=== PATIENT | female | born 1950 | race Caucasian/White ===

== ENCOUNTER 2017-02-20 19:50 | Emergency (ER) | payer MEDICARE, OTHER ==
[2017-02-20 20:46] VITALS: BP 116/80
--- NOTE | 2017-02-20 21:08 | UC ---
Upper Extremity HPI - HPI Summary HPI Summary: 66 F with right shoulder pain and right upper arm pain and left wrist pain and swelling after a fall 1 week ago. Pt with hx prior right shoulder dislocation, full thickness rotator cuff tear, osteoarthritis, calcium deposits in the tendon , enthesopathy. Pt states she was sore after the fall but able to continue her exercises and then this afternoon pt went to reach for something on a shelf and she could not reach and felt intense pain. - History of Current Complaint Chief Complaint: UCUpperExtremity Stated Complaint: RT SHOULDER PAIN, LT WRIST PAIN, FALL Time Seen by Provider: 02/20/17 20:17 Hx Obtained From: Patient Onset/Duration: Gradual Onset, Lasting Days, Still Present Severity Initially: Moderate Severity Currently: Moderate Pain Intensity: 9 Pain Scale Used: 0-10 Numeric Location Of Pain: Is Discrete @ - right shoulder Character: Sharp Aggravating Factor(s): Movement Alleviating Factor(s): Nothing Associated Signs And Symptoms: Positive: Negative Related History: Similar Episode/Dx As - rotator cuff tear - Risk Factors Non-Orthopedic Risk Factor: Negative DVT Risk Factors: Recent Trauma Septic Arthritis Risk Factor: Negative - Allergies/Home Medications Allergies/Adverse Reactions: Allergies Allergy/AdvReac Type Severity Reaction Status Date / Time Solifenacin [From Vesicare] Allergy Severe throat Verified 02/20/17 20:08 closes Sulfamethoxazole AdvReac Severe Vomiting Verified 02/20/17 20:08 Home Medications: Home Medications Cholecalciferol [D 1000] 2,000 unit PO DAILY 02/20/17 [History Confirmed ] Dicyclomine CAP* [Bentyl CAP*] 20 mg PO QID 02/20/17 [History Confirmed 02/20/17 ] Dulaglutide [Trulicity] 0.75 mg SC WEEKLY 02/20/17 [History Confirmed 02/20/17] QUEtiapine TAB* [Seroquel TAB*] 200 mg PO BEDTIME 02/20/17 [History Confirmed ] PMH/Surg Hx/FS Hx/Imm Hx Endocrine History Of: Reports: Diabetes Cardiovascular History Of: Reports: Hypertension - Surgical History Surgical History: Yes Surgery Procedure, Year, and Place: Cholecysectomy. Rotator Cuff Repair. Right Foot Tumor Removed. Ovarian Cyst Removed - Family History Known Family History: Positive: Diabetes - Social History Alcohol Use: None Substance Use Type: None Smoking Status (MU): Former Smoker When Did the Patient Quit Smoking/Using Tobacco: OVER 20 YEARS AGO Review of Systems Constitutional: Negative Skin: Negative Eyes: Negative ENT: Negative Respiratory: Negative Cardiovascular: Palpitations Gastrointestinal: Negative Genitourinary: Negative Motor: Negative Neurovascular: Negative Musculoskeletal: Arthralgia, Myalgia Neurological: Negative Psychological: Negative All Other Systems Reviewed And Are Negative: Yes Physical Exam Triage Information Reviewed: Yes Appearance: Ill-Appearing, Pain Distress, Obese Vital Signs: Initial Vital Signs Temp 98.2 F 02/20/17 20:16 Pulse 74 02/20/17 20:16 Resp 20 02/20/17 20:16 BP 116/80 02/20/17 20:16 Pulse Ox 100 02/20/17 20:16 Vital Signs Reviewed: Yes Eyes: Positive: Conjunctiva Clear ENT: Positive: Normal ENT inspection, Hearing grossly normal. Negative: Muffled /hoarse voice Neck: Positive: Supple, Nontender Respiratory: Positive: Lungs clear, Normal breath sounds, No respiratory distress Cardiovascular: Positive: RRR, No Murmur, Pulses Normal, Brisk Capillary Refill Musculoskeletal: Positive: ROM Limited @ - right shoulder, unable to raise right arm above her head, decreased abduction; left wrist with swelling ulnar aspect, full ROM, no bony tenderness Neurological: Positive: Alert, Muscle Tone Normal Psychological Exam: Normal Skin: Positive: Other - large ecchymosis on right lower abd after DM injection Upper Extremity Course/Dx - Course Course Of Treatment: right shoulder -no acute findings. right humerus - no acute findings. left wrist - no acute findings. EKG SR, nl AV increased IVCT, LAD, LVH. no acute changes, no prior to compare. - Differential Dx/Diagnosis Differential Diagnosis/HQI/PQRI: Fracture (Closed), Strain, Sprain, Other - rotator cuff tear, tendonitis Provider Diagnoses: 1) right shoulder strain with rotator cuff tear. 2) left wrist sprain. 3)palpitations Discharge - Discharge Plan Condition: Stable Disposition: HOME Patient Education Materials: Palpitations (ED), Rotator Cuff Injury (ED), Wrist Sprain (ED) Referrals: Dick Ramos MD [Primary Care Provider] - Karolina Vasquez MD [Medical Doctor] - 3 Days
--- NOTE | 2017-02-20 21:39 | RAD ---
HISTORY: Right shoulder pain COMPARISONS: None VIEWS: 4, Frontal internal rotation, external rotation, and outlet views of the right shoulder FINDINGS: BONE DENSITY: Normal. BONES: There is no displaced fracture. JOINTS: There is no arthropathy. ALIGNMENT: There is no dislocation. SOFT TISSUES: Unremarkable. OTHER FINDINGS: None. IMPRESSION: NO ACUTE OSSEOUS INJURY. IF SYMPTOMS PERSIST, RECOMMEND REPEAT IMAGING.
--- NOTE | 2017-02-20 21:40 | RAD ---
HISTORY: Right shoulder pain, trauma COMPARISONS: None VIEWS: 3, Frontal internal rotation and external rotation views of the right shoulder, with lateral views of the elbow FINDINGS: BONE DENSITY: Normal. BONES: There is no displaced fracture. JOINTS: There is no arthropathy. ALIGNMENT: There is no dislocation. SOFT TISSUES: Unremarkable. OTHER FINDINGS: None. IMPRESSION: NO ACUTE OSSEOUS INJURY. IF SYMPTOMS PERSIST, RECOMMEND REPEAT IMAGING.
--- NOTE | 2017-02-20 21:41 | RAD ---
HISTORY: Left wrist pain and swelling, subacute trauma COMPARISONS: None VIEWS: 3, Frontal, lateral, and oblique views of the left wrist FINDINGS: BONE DENSITY: Normal. BONES: There is no displaced fracture. JOINTS: There is osteoporosis of the first CMC and radiocarpal articulation ALIGNMENT: There is no dislocation. SOFT TISSUES: Unremarkable. OTHER FINDINGS: None. IMPRESSION: OSTEOARTHRITIS. NO ACUTE OSSEOUS INJURY. IF SYMPTOMS PERSIST, RECOMMEND REPEAT IMAGING.
== END 2017-02-20 22:13 | disposition home or self-care (01) ==
LOC: UCCORT 19:50
DX: S46.911A Strain of unspecified muscle, fascia and tendon at shoulder and upper arm level, right arm, initial encounter (principal); S46.011A Strain of muscle(s) and tendon(s) of the rotator cuff of right shoulder, initial encounter; S63.502A Unspecified sprain of left wrist, initial encounter; W19.XXXA Unspecified fall, initial encounter; Y93.9 Activity, unspecified; Y92.9 Unspecified place or not applicable; E11.9 Type 2 diabetes mellitus without complications; Z79.4 Long term (current) use of insulin; I10 Essential (primary) hypertension; Z90.49 Acquired absence of other specified parts of digestive tract; E66.9 Obesity, unspecified; Z88.2 Allergy status to sulfonamides; Z87.891 Personal history of nicotine dependence; M79.81 Nontraumatic hematoma of soft tissue
CPT/HCPCS: 93005; 99203; G0463

== ENCOUNTER 2019-09-12 14:31 | Emergency (ER) | payer MEDICARE, OTHER ==
--- OUTSIDE RECORDS SUMMARY | 2019-09-12 14:37 | XMS REPORT | Continuity of Care Document ---
:1950 External Reference #:[id number] Author Name Radha Hre, [facility] Address [address] [place] [id number] Care Team Providers Name Role Phone Dick Ramos MD - Family Care Team Information [employer] [phone] Medicine Problems Active Problems Provider Date Enthesopathy Onset: 11/16/2003 Calcium deposits in tendon Onset: 11/16/2003 Disorder of bursa of shoulder region Onset: 11/16/2003 Closed traumatic dislocation of joint Dre Capellan MD, FACS Onset: of shoulder region History of polyp of colon Billy Tom MD Onset: 08/07/2018 Irritable bowel syndrome with diarrhea Milo Ferreira MD Onset: 04/02/2018 Chronic nonalcoholic liver disease Milo Ferreira MD Onset: 02/19/2018 Digestive symptom Milo Ferreira MD Onset: 02/19/2018 Contusion of shoulder region Dre Capellan MD, FACS Onset: 10/20/2014 Localized, primary osteoarthritis Dre Capellan MD, FACS Onset: 2013 Full thickness rotator cuff tear Dre Capellan MD, FACS Onset: 2013 Localized, primary osteoarthritis of Dre Capellan MD, FACS Onset: 08/30 the shoulder region Social History Type Date Description Comments Sex Unknown Tobacco Use Start: Unknown End: Quit Unknown Smoking Status Reviewed: 06/23/19 Quit Smokeless Tobacco Never Used Smokeless Tobacco ETOH Use Denies alcohol use Tobacco Use Start: Unknown End: Patient is a former smoker Unknown Recreational Drug Use Denies Drug Use Allergies, Adverse Reactions, Alerts Active Allergies Reaction Severity Comments Date Sulfamethoxazole 07/08/2014 Vesicare 07/08/2014 NSAIDs kidney dysfunction 01/06/2019 Medications Active Medications SIG Qnty Indications Ordering Provider Date Unknown eye drops 4x Paulette Washingtonishmael, 02/19/2019 daily after MD cataract surgery Desmopressin Acetate Take One Tablet Unknown 0.2mg By Mouth AT Tablets Bedtime Chlorthalidone Take One Tablet Unknown 25mg Tablets By Mouth Every Day Onetouch Verio Flex Use To Test Blood Unknown Bloodglucose Monitoring Sugar System w/Device Kit Divalproex Sodium ER Take Three Unknown 500mg Tablets By Mouth Tablets ER 24HR AT Bedtime Maximum Daily Dose 1500MG Loperamide HCL take one capsule Unknown 2mg Capsules by mouth to start, then may take 1 capsule after each bout of diarrhea up to 8 caps a day Bupropion HCL ER (XL) Take One Tablet Unknown 150mg By Mouth Every Tablets ER 24HR Morning Latanoprost Instill One Drop Unknown 0.005% Solution In Each Eye AT Bedtime Onetouch Ultra Blue Use Two Times A Unknown Strips Day And as Needed Muscle Relief as needed Unknown 0.075% Cream Biofreeze A/D prn Unknown 4% Gel Tylenol Extra Strength A/D prn Unknown 500mg Tablets Quetiapine Fumarate 1 tabs at night Unknown 200mg and if needed 1 Tablets more Lisinopril once daily Unknown 10mg Tablets Lovastatin once daily Unknown 40mg Tablets Vitamin D 1 po daily Unknown 2000Unit Capsules Metoprolol Succinate ER 1 po daily Unknown 25mg Tablets ER 24HR Metformin HCL twice daily Unknown 500mg Tablets Medications Administered in Office Medication SIG Qnty Indications Ordering Provider Date Betamethasone Acetate & Sodium Radha Her, 01/22/2019 Phosphate 3 MG Of Each RPAC Injection Betamethasone Acetate & Sodium Radha Her, 01/22/2019 Phosphate 3 MG Of Each RPAC Injection Depomedrol 40mg/1cc Radha Her, 10/20/2018 (methylprednisolone acetate) RPAC Injection Depo-Medrol 20mg Radha Her, 10/20/2018 Injection RPAC Methylprednisolone acetate Radha Her, 05/01/2017 (Depomedrol) 80mg injection RPAC Injection Methylprednisolone acetate Radha Her, 09/20/2015 (Depomedrol) 80mg injection RPAC Injection Immunizations Description No Information Available Vital Signs Date Vital Result Comment 08/19/2019 10:19am BP Systolic 94 mmHg BP Diastolic 56 mmHg Body Temperature 96.9 F Heart Rate 74 /min Height 63.5 inches 5'3.50" Weight 229.00 lb BMI (Body Mass Index) 39.9 kg/m2 BSA (Body Surface Area) 2.06 m2 [place] body weight in kilograms 53 kg O2 % BldC Oximetry 96 % 06/23/2019 1:13pm BP Systolic 110 mmHg BP Diastolic 59 mmHg Body Temperature 98.7 F Heart Rate 68 /min Height 63.5 inches 5'3.50" Weight 234.00 lb BMI (Body Mass Index) 40.8 kg/m2 BSA (Body Surface Area) 2.08 m2 [place] body weight in kilograms 53 kg O2 % BldC Oximetry 95 % Results Test Date Facility Test Result H/L Range Note Xray 08/19/2019 [facility] - Orthopedic RMP, Hand, RT, < pending> [address] Complete (min [address] [place] [address] view) [phone] Procedures Date Code Description Status 08/19/2019 85215 Radiology, Hand: Minimum Three Views Completed 06/23/2019 72740 Debridement Nails Any Method 6 Or More Completed 04/14/2019 20986 Debridement Nails Any Method 6 Or More Completed 04/14/2019 45867 Pare Hyperkeratotic Lesion, 2-4 Completed 09/16/2014 [id number] Colonoscopy Completed 07/14/2009 [id number] Colonoscopy Completed 01/07/2007 [id number] Colonoscopy Completed 09/29/2004 [id number] Colonoscopy Completed Medical Devices Description No Information Available Encounters Type Date Location Provider Dx Diagnosis Office Visit 08/19/2019 Orthopaedic Office Radha Her M65.4 Radial styloid 10:15a S., RPAC tenosynovitis [de [facility]] M79.641 Pain in right hand M18.11 Unil primary osteoarth of first carpometacarp joint, r hand Office Visit 02/19/2019 Orthopaedic Her, M65.4 Radial styloid 1:45p Office Radha Weldon, tenosynovitis [de [facility]] M65.4 Radial styloid tenosynovitis [de [facility]] M18.12 Unil primary osteoarth of first carpometacarp joint, l hand M18.12 Unil primary osteoarth of first carpometacarp joint, l hand Assessments Date Code Description Provider 08/19/2019 M65.4 Radial styloid tenosynovitis [de Radha Her, [facility]] 08/19/2019 M79.641 Pain in right hand Radha Her, [facility] 08/19/2019 M18.11 Unilateral primary osteoarthritis of Radha Her, [facility] first carpometacarpal joint, right hand 06/23/2019 E11.9 Type 2 diabetes mellitus without Dre Betancourt, MARGARITO complications 06/23/2019 Q66.52 Congenital pes planus, left foot SerafinDre damon, MARGARITO 06/23/2019 Q66.51 Congenital pes planus, right foot Dre Betancourt, DPM 06/23/2019 M20.12 Hallux valgus (acquired), left foot Dre Betancourt, DPM 06/23/2019 M20.11 Hallux valgus (acquired), right foot Dre Betancourt, DPM 06/23/2019 M20.5x1 Other deformities of toe(s) (acquired), Dre Betancourt, DPM right foot 06/23/2019 M20.5x2 Other deformities of toe(s) (acquired), Dre Betancourt, DPM left foot 06/23/2019 M20.41 Other hammer toe(s) (acquired), right Dre Betancourt, DPM foot 06/23/2019 M20.42 Other hammer toe(s) (acquired), left foot Dre Betancourt, DPM 06/08/2019 E87.1 Hypo-osmolality and hyponatremia Brianna Leiva M.D. 06/08/2019 R53.1 Weakness Brianna Leiva M.D. 06/08/2019 E87.70 Fluid overload, unspecified Brianna Leiva M.D. 06/08/2019 N17.9 Acute kidney failure, unspecified Brianna Leiva M.D. 06/07/2019 E87.1 Hypo-osmolality and hyponatremia Brianna Leiva M.D. 06/07/2019 R53.1 Weakness Brianna Leiva M.D. 06/07/2019 E87.70 Fluid overload, unspecified Brianna Leiva M.D. 06/07/2019 N17.9 Acute kidney failure, unspecified Brianna Leiva M.D. 06/06/2019 E87.1 Hypo-osmolality and hyponatremia Brianna Leiva M.D. 06/06/2019 R53.1 Weakness Brianna Leiva M.D. 06/06/2019 E87.70 Fluid overload, Brianna Drake M.D. 06/06/2019 N17.9 Acute kidney failure, unspecified Brianna Leiva M.D. 06/05/2019 E87.1 Hypo-osmolality and hyponatremia Yury Rodríguez M.D. 06/05/2019 R53.1 Weakness Yury Rodríguez M.D. 06/05/2019 R42 Dizziness and giddiness Yury Rodríguez M.D. 06/05/2019 R06.02 Shortness of breath Yury Rodríguez M.D. 04/14/2019 E11.9 Type 2 diabetes mellitus without Dre Betancourt DPM complications 04/14/2019 E11.9 Type 2 diabetes mellitus without Dre Betancourt DPM complications 04/14/2019 L84 Corns and callosities Dre Betancourt DPM 04/14/2019 Q66.51 Congenital pes planus, right foot Dre Betancourt DPM 04/14/2019 Q66.52 Congenital pes planus, left foot Dre Betancourt DPM 04/14/2019 M20.12 Hallux valgus (acquired), left foot Dre Betancourt DPM 04/14/2019 M20.11 Hallux valgus (acquired), right foot Dre Betancourt DPM 04/14/2019 M20.5x2 Other deformities of toe(s) (acquired), Dre Betancourt DPM left foot 04/14/2019 M20.5x1 Other deformities of toe(s) (acquired), Dre Betancourt, DPM right foot 04/14/2019 M20.41 Other hammer toe(s) (acquired), right Dre Betancourt, [place] foot 04/14/2019 M20.42 Other hammer toe(s) (acquired), left foot Dre Betancourt DPM 02/19/2019 M65.4 Radial styloid tenosynovitis [Radha Esquivel, [facility]] 02/19/2019 M65.4 Radial styloid tenosynovitis [[facility]] 02/19/2019 M18.12 Unil primary osteoarth of first Radha Her S., RPAC carpometacarp joint, l hand 02/19/2019 M18.12 Unilateral primary osteoarthritis of Radha Her S., RPAC first carpometacarpal joint, left hand Plan of Treatment No Information Available Functional Status Description No Information Available Mental Status Description No Information Available Referrals Description No Information Available
[2019-09-12 14:42] VITALS: BP 108/60
--- NOTE | 2019-09-12 14:59 | UC ---
UC General HPI - History of Current Complaint Chief Complaint: LEWkin Stated Complaint: TAIL BONE PAIN Hx Obtained From: Patient Pain Intensity: 5 - Allergy/Home Medications Allergies/Adverse Reactions: Allergies Allergy/AdvReac Type Severity Reaction Status Date / Time Sulfa (Sulfonamide Allergy Vomiting Verified 09/12/19 14:55 Antibiotics) MS Sulfamethoxazole AdvReac Severe Vomiting Verified 09/12/19 14:55 [Sulfamethoxazole] Home Medications: Home Medications Acetaminophen [Acetaminophen Extra Strength] 500 mg PO QID 09/12/19 [History Confirmed 09/12/19] PMH/Surg Hx/FS Hx/Imm Hx Endocrine History: Diabetes, Dyslipidemia Cardiovascular History: Hypertension GI/ History: Gall Bladder Disease, Renal Disease, Other - IBS, benign uterine tumor Psychological History: Bipolar Disorder - Surgical History Surgical History: Yes Surgery Procedure, Year, and Place: Cholecysectomy. Rotator Cuff Repair. Right Foot Tumor Removed. Ovarian Cyst Removed. Hysterectomy - Family History Known Family History: Positive: Diabetes - Social History Occupation: Retired Lives: Alone Alcohol Use: None Substance Use Type: None Smoking Status (MU): Former Smoker When Did the Patient Quit Smoking/Using Tobacco: OVER 20 YEARS AGO Review of Systems All Other Systems Reviewed And Are Negative: Yes Constitutional: Negative: Fever, Chills Skin: Negative: Other - Unsure of skin lesions or skin breakdown ENT: Positive: Negative Respiratory: Positive: Negative Cardiovascular: Positive: Negative Gastrointestinal: Positive: Diarrhea. Negative: Abdominal Pain, Vomiting, Nausea Genitourinary: Positive: Other - Stress urinary incontinence. Negative: Dysuria , Hematuria, Frequency, Urgency Musculoskeletal: Positive: Negative Neurological: Negative: Weakness, Paresthesia, Numbness Is Patient Immunocompromised?: No Physical Exam - Summary Physical Exam Summary: GENERAL APPEARANCE: Well developed, well nourished, alert and cooperative, and appears to be in no acute distress. CARDIAC: Normal S1 and S2. No S3, S4 or murmurs. Rhythm is regular. There is no peripheral edema, cyanosis or pallor. Extremities are warm and well perfused. Capillary refill is less than 2 seconds. Peripheral pulses intact. LUNGS: Clear to auscultation without rales, rhonchi, wheezing or diminished breath sounds. ABDOMEN: Positive bowel sounds. Soft, nondistended, nontender. No guarding or rebound. No masses or hepatosplenomegally. MUSKULOSKELETAL: ROM intact to all extremities. No joint erythema or tenderness. Normal muscular development. Normal gait. BACK: Non-tender over the coccyx. There is soft tissue tenderness immediately inferior to the coccyx bone. No deformity, erythema, ecchymosis, edema, lesions , or ulceration noted. NEUROLOGICAL: Strength and sensation symmetric and intact to lower extremities. Reflexes 2+ bilaterally. SKIN: Skin normal color, texture and turgor for age. Triage Information Reviewed: Yes Vital Signs: Initial Vital Signs Temp 98.7 F 09/12/19 14:38 Pulse 61 09/12/19 14:38 Resp 18 09/12/19 14:38 BP 108/60 09/12/19 14:38 Pulse Ox 100 09/12/19 14:38 Vital Signs Reviewed: Yes Course/Dx - Course Course Of Treatment: 69-year-old female presents with 3 week history of tailbone pain. Patient reports she had a fall about a month before the onset of pain where she fell backwards flat onto her back but denies any back pain after the incident. She describes the pain as "extremely sore". Worsens with extended sitting or when changing positions from sitting to standing. Patient is very tangential with her medical history however reports she has IBS with frequent loose stools as well as stress incontinence for which she wears an adult incontinence brief. She is unsure of any skin breakdown or lesions. She has had 2 recent hospitalizations and states that she has been fairly immobile until recently. She also reports that she has had multiple precancerous polyps removed in the past and has routine colonoscopies every 5 years the most recent being 1 year ago when she had 2 polyps removed. Denies fever, chills, unintentional weight loss, abdominal pain, nausea, vomiting, rectal pain, pelvic pain, blood in stools, melena, dysuria, frequency, urgency, hematuria, vaginal discharge or abnormal bleeding. Afebrile. Vital signs stable. Patient was non-tender over the coccyx however did have soft tissue tenderness immediately inferior to the coccyx bone without deformity, erythema, ecchymosis, edema, lesions, or ulceration noted. Remainder of exam was unremarkable. I discussed with the patient that I could not determine the exact cause of her pain and that it may may be related to her recent immobility however I cannot also rule out other causes including a malignant tumor. Recommending conservative treatment for coccydynia including [id number] analgesic and use of a donut pillow to decrease pressure from the area. She is to follow-up with her primary care provider in 5-7 days for reevaluation of her symptoms. Anticipatory guidance and warning symptoms reviewed with the patient. Verbalizes understanding and agrees with plan of care. - Differential Dx - Multi-Symptom Differential Diagnoses: Other - Diagnoses Provider Diagnosis: Coccygalgia Discharge ED - Sign-Out/Discharge Documenting (check all that apply): Patient Departure All imaging exams completed and their final reports reviewed: No Studies - Discharge Plan Condition: Stable Disposition: HOME Patient Education Materials: Coccyx Injury (ED) Referrals: Massiel Chang NP [Primary Care Provider] - 5 Days Additional Instructions: I could find no indication for your tailbone pain at this time. Your skin was in good condition and you had no tenderness over the tailbone itself. It is possible that there is some soft tissue inflammation from your recent hospitalizations and immobility however I cannot fully rule out other causes including possible colorectal cancer especially considering your history of having multiple polyps. You may use acetaminophen (Tylenol) according directions as needed for pain. You may also want to try using a donut pillow or wedge pillow to help relieve pressure on the tailbone. These can be purchased at a pharmacy or [employer]. Follow-up with your primary care provider within 5-7 days for further evaluation. Seek immediate medical attention in the emergency room if you develop fever greater than 100.5 F, have severe abdominal pain, blood in your bowel movements or have dark black bowel movements, you develop weakness, numbness, or tingling in the extremities, are unable to ambulate, or have any worsening of symptoms. - Billing Disposition and Condition Condition: STABLE Disposition: Home
== END 2019-09-12 15:40 | disposition home or self-care (01) ==
LOC: UCCORT 14:31
DX: M53.3 Sacrococcygeal disorders, not elsewhere classified (principal); E11.9 Type 2 diabetes mellitus without complications; I10 Essential (primary) hypertension; F31.9 Bipolar disorder, unspecified; Z90.710 Acquired absence of both cervix and uterus; Z90.49 Acquired absence of other specified parts of digestive tract; Z88.2 Allergy status to sulfonamides; Z87.891 Personal history of nicotine dependence
CPT/HCPCS: 99211; G0463

== ENCOUNTER 2019-11-16 20:36 | Emergency (ER) | payer MEDICARE, OTHER ==
--- OUTSIDE RECORDS SUMMARY | 2019-11-16 20:43 | XMS REPORT | Continuity of Care Document ---
:1950 External Reference #:[id number] Author Name Bernard Schulte M.D. (transmitted by agent of provider Richard Camargo) Address [address] [place] [address] Care Team Providers Name Role Phone Justin, Ayana Hammond MD - Family Care Team Information Secretary Of State [phone] Medicine Dick Ramos MD - Family Care Team Information Secretary Of State Medicine John Garcia M.D. - Family Care Team Information Secretary Of State Medicine Problems Active Problems Provider Date Gout Eddy Smith M.D. Onset: 09/10/2013 Immunological Findings Nonspecified Other & Eddy Smith M.D. Onset: 2012 Unspecified Localized, primary osteoarthritis of the lower Eddy Smith M.D. Onset: 03/2013 leg Simple chronic bronchitis Eddy Smith M.D. Onset: 06/24/2013 Chronic pain syndrome Eddy Smith M.D. Onset: 06/24/2013 Multiple joint pain dEdy Smith M.D. Onset: 06/24/2013 Irritable bowel syndrome Onset: 10/10/2011 Impaired renal function disorder Onset: 10/10/2011 Arthropathy Onset: 10/10/2011 Hyperlipidemia Onset: 10/10/2011 Anxiety state Onset: 10/10/2011 Essential hypertension Onset: 10/10/2011 Type 2 diabetes mellitus Onset: 10/10/2011 Social History Type Date Description Comments Sex Unknown Tobacco Use Start: Unknown End: Former Cigarette Smoker Unknown Tobacco Use Start: Unknown Never Smoked Cigars Tobacco Use Start: Unknown Never Smoked A Pipe Smoking Status Reviewed: 09/30/19 Never Smoked A Pipe Smokeless Tobacco Never Used Smokeless Tobacco ETOH Use Denies alcohol use Tobacco Use Start: Unknown End: Patient is a former Unknown smoker Exercise Type/Frequency Exercises regularly water exercises Allergies, Adverse Reactions, Alerts Active Allergies Reaction Severity Comments Date Sulfa Antibiotics 06/24/2013 Vesicare 01/01/2017 Chlorthalidone nausea,vomiting and dizziness 09/30/2019 Medications Active Medications SIG Qnty Indications Ordering Date Provider Spiriva Respimat 2 puffs every in 12gm J44.9 Dick 03/24/2019 the morning MD Rachel 2.5mcg/Act Aerosol Proair HFA 2 puffs every 4 8.500gm J44.9 Dick 03/24/2019 hours as needed MD Rachel 108(90Base) mcg/Act Aerosol Nova Quad Tip/Four use daily 1units Dick 12/24/2018 Prongs 3/4" Shaft MD Rachel Cane 4Prong Misc Glucose Meter Test use bid and prn 100units 12/24/2018 Strips Advanced MD Rachel Strips Vitamin D3 1 by mouth every 90caps Dick 09/20/2015 2000Unit day MD Rachel Capsules Metoprolol Succinate 1 by mouth every 90tabs Dick 06/24/2013 ER day MD Rachel 50mg Tablets ER 24HR Lovastatin 1 by mouth every 90tabs Dick 06/24/2013 40mg night at bedtime MD Rachel Tablets Bupropion HCL ER 1 po qd 30tabs F31.71 Dick 09/16/2012 (XL) MD Rachel 150mg Tablets ER 24HR Quetiapine Fumarate take one tablet Unknown at bedtime as 100mg Tablets needed Quetiapine Fumarate one by mouth at Unknown bedtime 200mg Tablets Metformin HCL ER 1 by mouth twice Unknown (Mod) daily 500mg Tablets ER 24HR Divalproex Sodium ER 3 tabs at at 270tabs F31.71 Dick bedtime MD Rachel 500mg Tablets ER 24HR Stool Softener 1 by mouth prn Unknown Capsules Tumersaid 1 by mouth daily Unknown Tablets Salonpas Gel uses prn Unknown 0.025-1.25% Patches Biofreeze as directed Unknown 4% Gel Tylenol Extra 1 or 2 by mouth Unknown Strength as needed 500mg Tablets Immunizations CPT Code Status Date Vaccine Lot # [id number] Given 09/22/2018 Fluzone High Dose 91873 Given 09/02/2017 Fluzone High Dose 66015 Given 09/20/2016 Pneumococcal Conjugate Vaccine 13 Valent For Intramuscular Use 17941 Given 09/20/2016 Fluzone High Dose 09153 Given 08/18/2014 Influenza Virus 3Yrs & Over 11841 Given 09/17/2013 Zoster (Zostavax) 68658 Given 09/17/2013 Pneumonia Vaccine 78592 Given 08/13/2011 Tdap - Tetanus/Diptheria/Acellular Pertussis 40403 Given 08/13/2011 Influenza Virus 3Yrs & Over 18437 Given 08/16/2010 Influenza Virus 3Yrs & Over 85893 Given 10/03/2009 Influenza Virus 3Yrs & Over 29745 Given 05/03/2008 Pneumonia Vaccine 70268 Given 08/29/2006 Tetanus Toxoid Adsorbed, For Intramuscular Use Vital Signs Date Vital Result Comment 09/30/2019 9:57am Heart Rate 52 /min BP Systolic Sitting 110 mmHg BP Diastolic Sitting 70 mmHg Respiratory Rate 12 /min no resp difficulties Pain Level 7 O2 % BldC Oximetry 93 % 03/24/2019 11:06am Weight 245.00 lb BP Systolic 120 mmHg BP Diastolic 82 mmHg Results Description No Information Available Procedures Date Code Description Status 06/23/2019 826001844 Diabetic Foot Exam Completed 06/03/2019 86846 ECHO Transthoracic, Real-Time 2D With Doppler And Completed Color Flow 04/14/2019 [id number] Diabetic Foot Exam Completed 02/06/2019 [id number] Diabetic Foot Exam Completed 01/08/2019 413134040 Diabetic Retinal Eye Exam Completed 12/03/2018 [id number] Diabetic Foot Exam Completed 10/03/2018 [id number] Diabetic Foot Exam Completed 09/16/2017 [id number] Diabetic Foot Exam Completed Medical Devices Description No Information Available Encounters Description No Information Available Assessments Date Code Description Provider 09/30/2019 M14.671 Charcot's joint, right ankle and foot Bernard Schulte M.D. 09/30/2019 M14.672 Charcot's joint, left ankle and foot Bernard Schulte M.D. 09/30/2019 M19.072 Primary osteoarthritis, left ankle and Bernard Schulte M.D. foot 06/03/2019 R06.02 Shortness of breath William Leo DO [facility] 06/03/2019 R06.02 Shortness of breath Traveling ECHO 2 Plan of Treatment Future Appointment(s):01/06/2020 9:45 am - Bernard Schulte M.D. at [facility] at [facility]/06/2019 - Bernard Schulte M.D.M14.671 Charcot's joint , right ankle and footFollow up:Follow up: 3 [id number] Charcot's joint, left ankle and footM19.072 Primary osteoarthritis, left ankle and foot Functional Status Description No Information Available Mental Status Description No Information Available Referrals Description No Information Available
--- OUTSIDE RECORDS SUMMARY | 2019-11-16 20:43 | XMS REPORT | Continuity of Care Document ---
:1950 External Reference #:[id number] Author Name Bernard Schulte M.D. (transmitted by agent of provider Yuliana Granados) Address [address] [place] [address] Care Team Providers Name Role Phone Justin, Ayana Hammond MD - Family Care Team Information Combination Operator [phone] Medicine Dick Ramos MD - Family Care Team Information Combination Operator Medicine John Garcia M.D. - Family Care Team Information Combination Operator Medicine Problems Active Problems Provider Date Gout Edyd Smith M.D. Onset: 09/10/2013 Immunological Findings Nonspecified Other & Eddy Smith M.D. Onset: 2012 Unspecified Localized, primary osteoarthritis of the lower Eddy Smith M.D. Onset: 03/2013 leg Simple chronic bronchitis Eddy Smith M.D. Onset: 06/24/2013 Chronic pain syndrome Eddy Smith M.D. Onset: 06/24/2013 Multiple joint pain Eddy Smith M.D. Onset: 06/24/2013 Irritable bowel syndrome [...] Never Smoked A Pipe Smoking Status Reviewed: 11/11/19 Never Smoked A Pipe Smokeless Tobacco Never [...] Meter Test use bid and prn 100units Dick 12/24/2018 Strips Advanced MD Rachel Strips Vitamin [...] (XL) MD Rachel 150mg Tablets ER 24HR Lisinopril 1 by mouth every Unknown 10mg day Tablets Magnesium take one Unknown 300mg capsule/tablet Capsules daily by mouth Quetiapine Fumarate take one tablet Unknown at [...] CPT Code Status Date Vaccine Lot # [id number] Given 09/22/2018 Fluzone High Dose 18680 Given 09/02/2017 Fluzone High Dose 39064 Given 09/20/2016 Pneumococcal Conjugate Vaccine 13 Valent For Intramuscular Use 04600 Given 09/20/2016 Fluzone High Dose 75310 Given 08/18/2014 Influenza Virus 3Yrs & Over 46219 Given 09/17/2013 Zoster (Zostavax) 86730 Given 09/17/2013 Pneumonia Vaccine 51537 Given 08/13/2011 Tdap - Tetanus/Diptheria/Acellular Pertussis 63662 Given 08/13/2011 Influenza Virus 3Yrs & Over 56094 Given 08/16/2010 Influenza Virus 3Yrs & Over 84539 Given 10/03/2009 Influenza Virus 3Yrs & Over 74743 Given 05/03/2008 Pneumonia Vaccine 11504 Given 08/29/2006 Tetanus Toxoid Adsorbed, For Intramuscular Use Vital Signs Date Vital Result Comment 11/11/2019 9:44am Height 64 inches 5'4" Weight 231.00 lb Heart Rate 89 /min BP Systolic Sitting 136 mmHg BP Diastolic Sitting 76 mmHg Respiratory Rate 22 /min Pain Level 7 O2 % BldC Oximetry 98 % BMI (Body Mass Index) 39.6 kg/m2 10/07/2019 2:19pm Height 64 inches 5'4" Weight 233.00 lb Heart Rate 77 /min Respiratory Rate 18 /min Body Temperature 98.6 F Pain Level 8 O2 % BldC Oximetry 96 % BMI (Body Mass Index) 40.0 kg/m2 Results Description No Information Available Procedures Date Code Description Status 06/23/2019 770496385 Diabetic Foot Exam Completed 06/03/2019 37819 ECHO Transthoracic, Real-Time 2D With Doppler And Completed Color Flow 04/14/2019 824490586 Diabetic Foot Exam Completed 02/06/2019 193371918 Diabetic Foot Exam Completed 01/08/2019 416078644 Diabetic Retinal Eye Exam Completed 12/03/2018 856912454 Diabetic Foot Exam Completed 10/03/2018 530113724 Diabetic Foot Exam Completed 09/16/2017 [id number] Diabetic Foot Exam Completed Medical Devices Description No Information Available Encounters Type Date Location Provider Dx Diagnosis Office Visit 10/07/2019 [facility] Bernard Schulte, M14.671 [facility] 09/30/2019 [facility] Bernard Schulte, M14.671 Charcot '[facility] 9[facility] M14.672 Charcot's joint, left ankle and foot M19.072 Primary osteoarthritis, left ankle and foot Assessments Date Code Description Provider 10/07/2019 M14.671 Charcot's joint, right ankle and foot Bernard Schulte M.D. 09/30/2019 M14.671 Charcot's joint, right ankle and foot Bernard Schulte M.D. 09/30/2019 M14.672 Charcot's joint, left ankle and foot Bernard Schulte M.D. 09/30/2019 M19.072 Primary osteoarthritis, left ankle and Bernard Schulte M.D. foot 06/03/2019 R06.02 Shortness of breath William Leo DO [facility] 06/03/2019 R06.02 Shortness of breath Traveling ECHO 2 Plan of Treatment Future Appointment(s):01/06/2020 9:45 am - Bernard Schulte M.D. at [facility] Functional Status Description No Information Available Mental Status Description No Information Available Referrals Description No Information Available
[2019-11-16 20:48] VITALS: BP 156/81
--- NOTE | 2019-11-16 20:59 | UC ---
Skin Complaint HPI - HPI Summary HPI Summary: 69-year-old female who has been on nitrofurantoin for a urinary tract infection. She has chronic skin breakdown with fungal infections because of her abdominal fat and that has flared up since she has been on the antibiotic. She states that usually she uses nystatin topical powder which works as well as Diflucan however she has run out of both of those medications. - History of Current Complaint Chief Complaint: UCSkin Time Seen by Provider: 11/16/19 20:40 Stated Complaint: PERSONAL Hx Obtained From: Patient Hx Last Menstrual Period: N/A ?: No Onset/Duration: Gradual Onset Skin Exposure Onset/Duration: Days Ago Timing: Constant Onset Severity: Moderate Current Severity: Moderate Pain Intensity: 0 Location: Other - The skin breakdown is under the abdominal fat. Character: Pruritus, Redness Aggravating Factor(s): Other - Patient has been on an antibiotic for urinary tract infection which has exacerbated her skin condition. Alleviating Factor(s): Nothing Associated Signs & Symptoms: Positive: Tenderness - Allergy/Home Medications Allergies/Adverse Reactions: Allergies Allergy/AdvReac Type Severity Reaction Status Date / Time Sulfa (Sulfonamide Allergy Vomiting Verified 11/16/19 20:47 Antibiotics) Home Medications: Home Medications Nitrofurantoin Macrocrystal [Nitrofurantoin] 100 mg PO BID 11/16/19 [History Confirmed 11/16/19] PMH/Surg Hx/FS Hx/Imm Hx Previously Healthy: Yes Endocrine History: Diabetes Cardiovascular History: Hypertension - Surgical History Surgical History: Yes Surgery Procedure, Year, and Place: Cholecysectomy. Rotator Cuff Repair. Right Foot Tumor Removed. Ovarian Cyst Removed. Hysterectomy - Family History Known Family History: Positive: Diabetes - Social History Occupation: Retired Alcohol Use: None Substance Use Type: None Smoking Status (MU): Former Smoker When Did the Patient Quit Smoking/Using Tobacco: OVER 20 YEARS AGO Review of Systems All Other Systems Reviewed And Are Negative: Yes Skin: Positive: Rash - Patient has chronic skin breakdown underneath her abdominal fat which was exacerbated because of the antibiotics she is on. Is Patient Immunocompromised?: No Physical Exam Triage Information Reviewed: Yes Appearance: Well-Appearing, No Pain Distress, Well-Nourished Vital Signs: Initial Vital Signs Temp 97.8 F 11/16/19 20:42 Pulse 86 11/16/19 20:42 Resp 18 11/16/19 20:42 BP 156/81 11/16/19 20:42 Pulse Ox 100 11/16/19 20:42 Vital Signs Reviewed: Yes Skin: Positive: Rashes, Other - The area underneath the patient's abdominal fat is quite red and inflamed and tender with a mildly foul odor to it. Course/Dx - Course Course Of Treatment: Patient is comfortable here. I am going to refill the nystatin and she has taken Diflucan before. The pharmacies are closed for tonight but she is going to fill those prescriptions tomorrow. She can repeat the Diflucan in approximately 1 week from now if she continues to have symptoms and follow-up with her primary care provider as needed. She is to clean the area daily and let it air dry prior to putting on the topical nystatin. - Diagnoses Provider Diagnosis: Yuni albicans infection Discharge ED - Sign-Out/Discharge Documenting (check all that apply): Patient Departure All imaging exams completed and their final reports reviewed: No Studies - Discharge Plan Condition: Good Disposition: HOME Prescriptions: Fluconazole 150 MG TAB* [Diflucan 150 MG TAB*] 150 mg PO ONCE 1 Days #1 tablet Nystatin TOP POWDER* 1 applic TOPICAL TID #1 btl Patient Education Materials: Tinea Versicolor (ED) Referrals: No Primary Care Phys,NOPCP [Primary Care Provider] - Additional Instructions: Keep the area clean and as dry as possible. Applied the topical antifungal 3 times a day. Definite follow-up with your primary care provider or your SAFETY TECHNICIAN provider for further care if no improvement. You may repeat the Diflucan in 1 week if continued symptoms. - Billing Disposition and Condition Condition: GOOD Disposition: Home
== END 2019-11-16 21:12 | disposition home or self-care (01) ==
LOC: UCCORT 20:36
DX: B37.89 Other sites of candidiasis (principal); E11.9 Type 2 diabetes mellitus without complications; I10 Essential (primary) hypertension; N39.0 Urinary tract infection, site not specified; Z88.2 Allergy status to sulfonamides; Z87.891 Personal history of nicotine dependence; Z79.899 Other long term (current) drug therapy
CPT/HCPCS: 99212; G0463